=== PATIENT | female | born 1980 ===

== ENCOUNTER 2025-01-08 00:34 | Emergency (ER) | payer SELFPAY ==
[2025-01-08 00:38] VITALS: BP 160/96; PULSE 134; O2SAT 99
[2025-01-08 01:05] VITALS: BP 161/104; PULSE 126; RESP 20; TEMP 36.8; O2SAT 99; BMI 23.2
--- NOTE | 2025-01-08 04:15 | ED.GENADULT ---
HPI - General Adult General Chief complaint: General Medical Stated complaint: Hallucinations from drug ingestion Time Seen by Provider: 01/08/25 03:58 Source: patient Limitations: no limitations History of Present Illness ED Provider: HPI narrative: Patient has had a drink some chocolate and had some mushrooms earlier evening calling PD from her car saying that she could not phone while using the also complaining of chronic hand pain after coming to the ER patient denies any complaints says that she did not have any mushroom Related Data Allergies Allergy/AdvReac Type Severity Reaction Status Date / Time No Known Allergies Allergy Verified 01/08/25 01:09 Review of Systems Review of Systems: Yes all other systems are reviewed and are negative [facility] Social History Social History Advance Directives: No Advance Directives Information Provided: No Physical Exam ED Vital Signs: Vital Signs - 24 hr 01/08/25 01:05 Temperature 98.3 F Pulse Rate 126 H Respiratory Rate 20 Blood Pressure 161/104 H Pulse Oximetry 99 Oxygen Delivery Method Room Air BMI result Body Mass Index 23.2 Appearance: Alert. Oriented X3. Anxious Eyes: PERRLA, No Nystagmus ENT: Pharynx normal. Oral Mucosa moist Neck: Normal inspection. Neck supple. CVS: Normal heart rate and rhythm. Pulses normal. Respiratory: No respiratory distress. Equal air entry bilateral, no wheezing/rales/rhonchi Abdomen: Soft and nontender. Bowel sounds are present, no mass palpable, no CVA tenderness Skin: Skin warm and dry. Normal skin color. Normal skin turgor. Extremities: No lower extremity edema. No calf tenderness Neuro: Oriented X 3. No motor deficit. No sensory deficit.No cerebellar signs , cranial nerves II-XII intact Discharge Plan Discharge Clinical Impression: Anxiety Patient Disposition: Home, Self-Care Instructions: Anxiety (ED) Additional Instructions: Do not take unprescribed medication or drugs Follow with your PCP as needed Print Language: Mozamb[place]
[2025-01-08 04:57] VITALS: BP 148/76; PULSE 88; RESP 20; TEMP 36.8; O2SAT 99
== END 2025-01-08 05:01 | disposition home or self-care (01) ==
PROVIDERS: Emergency Provider Internal Medicine
DX: F16.951 Hallucinogen use, unspecified with hallucinogen-induced psychotic disorder with hallucinations (principal); F41.9 Anxiety disorder, unspecified
CPT/HCPCS: 99282